=== PATIENT | female | born 1935 | race Caucasian/White ===

== ENCOUNTER 2016-07-05 13:07 | Emergency (ER) | payer MEDICARE ==
[~2016-07-05] VITALS: Ht 152.4 cm; Wt 81.8 kg
[2016-07-05 13:09] VITALS: BP 129/47; PULSE 70; TEMP 98.5
[2016-07-05] MEDS ORDERED: CALCIUM 600/VIT1 CAP PO (13:20)
[2016-07-05] MEDS ORDERED: ZYLOPRIM 300MG300 MG PO (13:20)
[2016-07-05] MEDS ORDERED: COREG 25MG25 MG/TAB PO (13:21)
[2016-07-05] MEDS ORDERED: REFRESH PLUS 00.4 M1 OP (13:21)
[2016-07-05] MEDS ORDERED: NEURONTIN300 MG/CAP PO (13:22)
[2016-07-05] MEDS ORDERED: COZAAR 25MG25 MG/TAB PO (13:22)
[2016-07-05] MEDS ORDERED: MAG-OX 400400 MG/TAB PO (13:23)
[2016-07-05] MEDS ORDERED: LUTEIN20 M1 (13:23)
[2016-07-05] MEDS ORDERED: FISH OIL 1000MG1 CAP PO (13:24)
[2016-07-05] MEDS ORDERED: SYSTANE 0.4%-0.1 SOL OP (13:24)
[2016-07-05] MEDS ORDERED: ZANTAC 150MG T150 MG PO (13:24)
[2016-07-05] MEDS ORDERED: MIRALAX PA17 GM/Dose PO (13:24)
[2016-07-05] MEDS ORDERED: B-121000 MCG PO (13:25)
[2016-07-05] MEDS ORDERED: ALDACTONE 25MG25 M1 PO (13:25)
[2016-07-05] MEDS ORDERED: ZOCOR 40MG40 MG PO (13:25)
[2016-07-05] MEDS ORDERED: COUMADIN 3MG3 MG/TAB PO (13:27)
== END 2016-07-05 15:56 | disposition home or self-care (01) ==
LOC: COL.ER 13:07
DX: M25.562 Pain in left knee (principal); M25.462 Effusion, left knee; N18.9 Chronic kidney disease, unspecified; I50.9 Heart failure, unspecified; Z95.1 Presence of aortocoronary bypass graft; Z95.0 Presence of cardiac pacemaker
CPT/HCPCS: L1830

== ENCOUNTER 2017-01-14 14:36 | Emergency (ER) | payer MEDICARE ==
[~2017-01-14] VITALS: Ht 149.9 cm; Wt 84.1 kg
[~2017-01-14 14:36] MED LIST: ALDACTONE 25MG25 M1 PO; B-121000 MCG PO; CALCIUM 600/VIT1 CAP PO; COREG 25MG25 MG/TAB PO; COUMADIN 3MG3 MG/TAB PO; COZAAR 25MG25 MG/TAB PO; FISH OIL 1000MG1 CAP PO; LUTEIN20 M1; MAG-OX 400400 MG/TAB PO; MIRALAX PA17 GM/Dose PO; NEURONTIN300 MG/CAP PO; REFRESH PLUS 00.4 M1 OP; SYSTANE 0.4%-0.1 SOL OP; ZANTAC 150MG T150 MG PO; ZOCOR 40MG40 MG PO; ZYLOPRIM 300MG300 MG PO
[2017-01-14 14:38] VITALS: TEMP 99.9
[2017-01-14 15:24] LABS: HEMOGLOBIN 12.3 g/dl (12.5-16.0); MEAN CELL VOLUME 102 fl (80.0-100.0); MEAN CORPUSCULAR HEMOGLOBIN 35 pg (27.0-31.0); MEAN CORPUSCULAR HGB CONC 34 g/dl (33.0-37.0); MEAN PLATELET VOLUME 10.2 fl (7.4-10.4); PLATELET COUNT 152 K/mm3 (130-400); RED BLOOD COUNT 3.56 M/mm3 (4.10-5.30)
[2017-01-14 15:33] LABS: ADD PATHOLOGY DIFF REVIEW NO; HEMATOCRIT 36.2 % (37.0-47.0)
[2017-01-14] MEDS ORDERED: REFRESH 1 ML1 ML OP (15:33)
[2017-01-14] MEDS ORDERED: IMDUR 30MG30 MG/TAB PO (15:34)
[2017-01-14 15:36] LABS: ADJUSTED CALCIUM 9.6 mg/dL (8.4-10.2); ALBUMIN 4.7 gm/dL (3.5-5.0); C-REACTIVE PROTEIN 2.1 mg/dL (0.0-0.9); CALCIUM 10.2 mg/dL (8.4-10.2); CREATININE, serum 1.56 mg/dL (0.52-1.25); POTASSIUM 4.6 mmol/L (3.4-5.0); TOTAL PROTEIN 8.2 gm/dL (6.4-8.2)
[2017-01-14 15:38] LABS: INR 4.8 (0.8-3.0)
[2017-01-14 15:46] LABS: PROTHROMBIN TIME 57.1 SECONDS (9.7-12.8)
[2017-01-14 16:29] LABS: BAND 10 % (0-10); EOSINOPHIL 2 % (0-4); LYMPHOCYTE 5 % (20.0-51.0); NEUTROPHILS 82 % (42.0-75.2); PLATELET ESTIMATE NORMAL (NORMAL); TOTAL CELLS COUNTED 100
[2017-01-14 16:30] LABS: TOXIC GRANULATION PRESENT
[2017-01-14 16:31] LABS: ANISOCYTOSIS 1+; OVALOCYTES 1+
[2017-01-14] MEDS ORDERED: ZOFRAN 4MG T4 MG/TAB PO (16:42)
[2017-01-14 16:50] VITALS: BP 122/84; PULSE 84
== END 2017-01-14 17:10 | disposition home or self-care (01) ==
LOC: COL.ER 14:36
PROVIDERS: Emergency Medicine
DX: K52.9 Noninfective gastroenteritis and colitis, unspecified (principal); R79.1 Abnormal coagulation profile; I10 Essential (primary) hypertension; E78.5 Hyperlipidemia, unspecified; Z79.01 Long term (current) use of anticoagulants; Z95.1 Presence of aortocoronary bypass graft; Z90.710 Acquired absence of both cervix and uterus; Z90.49 Acquired absence of other specified parts of digestive tract; Z90.89 Acquired absence of other organs
CPT/HCPCS: J2405; J7030

== ENCOUNTER 2017-03-26 13:34 | Inpatient (IN) | payer MEDICARE ==
[~2017-03-26] VITALS: Ht 149.9 cm; Wt 85.5 kg
[~2017-03-26 13:34] MED LIST changes: +IMDUR 30MG30 MG/TAB PO; +REFRESH 1 ML1 ML OP; +ZOFRAN 4MG T4 MG/TAB PO
[2017-03-26 14:40] LABS: BASO % 0.1 % (0.0-2.0); EOS # 0.1 (0.0-0.7); GRAN # 5.3 (1.4-6.5); GRAN % 76.6 % (42.2-75.2); LYMPH # 0.7 (1.2-3.4); LYMPH % 10.2 % (20.0-51.0); MEAN CELL VOLUME 103 fl (80.0-100.0); MEAN CORPUSCULAR HGB CONC 33 g/dl (33.0-37.0); MEAN PLATELET VOLUME 10.4 fl (7.4-10.4); MONO # 0.7 (0.1-0.6); MONO % 10.5 % (1.7-9.3); PLATELET COUNT 98 K/mm3 (130-400); RED BLOOD COUNT 2.85 M/mm3 (4.10-5.30); REDCELL DISTRIBUTION WIDTH-CV 14.6 % (11.5-14.5)
[2017-03-26 14:40] LABS: INR 3.1 (0.8-3.0); PROTHROMBIN TIME 36.6 SECONDS (9.7-12.8)
[2017-03-26 14:41] LABS: HEMATOCRIT 29.3 % (37.0-47.0); HEMOGLOBIN 9.6 g/dl (12.5-16.0); MEAN CORPUSCULAR HEMOGLOBIN 34 pg (27.0-31.0)
[2017-03-26 14:46] LABS: ALBUMIN 3.8 gm/dL (3.5-5.0); BILIRUBIN,TOTAL 1.1 mg/dL (0.0-1.0); CREATININE, serum 1.51 mg/dL (0.52-1.25); POTASSIUM 4.4 mmol/L (3.4-5.0); TOTAL PROTEIN 6.6 gm/dL (6.4-8.2)
[2017-03-26 14:53] LABS: INFLUENZA A NEGATIVE; INFLUENZA B NEGATIVE
[2017-03-26 14:58] LABS: TROPONIN-I 0.02 ng/mL (0.000-0.034)
[2017-03-26 15:44] LABS: COLLECTION METHOD CLEAN CATCH
[2017-03-26 15:51] LABS: HYALINE CAST >12 /lpf; MUCOUS Present /lpf; PH 6 (5-8); SQUAMOUS EPITHELIAL 0-2 /hpf; URINE APPEARANCE Clear; URINE BACTERIA None Seen /hpf; URINE BILIRUBIN Negative (NEGATIVE); URINE BLOOD Negative (NEGATIVE); URINE COLOR Yellow; URINE GLUCOSE Negative (NEGATIVE); URINE KETONE Negative (NEGATIVE); URINE LEUKOCYTE ESTERASE Negative (NEGATIVE); URINE NITRATE Negative (NEGATIVE); URINE PROTEIN(semi-quant) 1+ (NEGATIVE); URINE RBC 0-2 /hpf; URINE UROBILINOGEN Negative (NEGATIVE)
[2017-03-26 20:10] VITALS: BP 108/52; PULSE 69; TEMP 98.1
[2017-03-27 00:42] VITALS: BP 116/48; PULSE 66; TEMP 98.5
[2017-03-27 03:54] VITALS: BP 118/39; PULSE 71; TEMP 98.3
[2017-03-27] MEDS ORDERED: COUMADIN 3MG3 MG/TAB PO (08:58)
[2017-03-27] MEDS ORDERED: NEURONTIN300 MG/CAP PO (08:59)
[2017-03-27 09:02] VITALS: BP 100/72; PULSE 69; TEMP 97.7
== END 2017-03-27 12:25 | disposition home or self-care (01) | DRG 641 ==
LOC: COL.ER 13:34 → MEDICAL 15:29
PROVIDERS: Emergency Medicine
DX: E86.0 Dehydration (principal); I13.0 Hypertensive heart and chronic kidney disease with heart failure and stage 1 through stage 4 chronic kidney disease, or unspecified chronic kidney disease; R55 Syncope and collapse; I50.9 Heart failure, unspecified; N18.9 Chronic kidney disease, unspecified; I95.1 Orthostatic hypotension; R19.7 Diarrhea, unspecified; I25.2 Old myocardial infarction; J06.9 Acute upper respiratory infection, unspecified; Z79.01 Long term (current) use of anticoagulants; Z95.2 Presence of prosthetic heart valve; Z95.1 Presence of aortocoronary bypass graft; Z87.891 Personal history of nicotine dependence
CPT/HCPCS: 99222-AI; 99239; J7040; J7050

== ENCOUNTER 2017-11-27 15:13 | Observation (INO) | payer MEDICARE ==
[~2017-11-27] VITALS: Ht 149.9 cm; Wt 81.2 kg
[2017-11-27 15:46] LABS: BASO % 0.1 % (0.0-2.0); EOS # 0.3 (0.0-0.7); EOS % 3.2 % (0-4.0); GRAN # 6.1 (1.4-6.5); GRAN % 75.1 % (42.2-75.2); HEMOGLOBIN 10.4 g/dl (12.5-16.0); LYMPH # 0.9 (1.2-3.4); LYMPH % 11.3 % (20.0-51.0); MEAN CELL VOLUME 97 fl (80.0-100.0); MEAN CORPUSCULAR HEMOGLOBIN 33 pg (27.0-31.0); MEAN CORPUSCULAR HGB CONC 34 g/dl (33.0-37.0); MEAN PLATELET VOLUME 9.9 fl (7.4-10.4); MONO # 0.8 (0.1-0.6); MONO % 9.9 % (1.7-9.3); PLATELET COUNT 109 K/mm3 (130-400); RED BLOOD COUNT 3.17 M/mm3 (4.10-5.30); REDCELL DISTRIBUTION WIDTH-CV 14.5 % (11.5-14.5)
[2017-11-27 15:47] LABS: HEMATOCRIT 30.7 % (37.0-47.0)
[2017-11-27 15:49] LABS: INR 3.3 (0.8-3.0); PROTHROMBIN TIME 37.2 SECONDS (9.7-12.8)
[2017-11-27 15:58] LABS: ALANINE AMINOTRANSFERASE 37 U/L (9-52); ALBUMIN 3.7 gm/dL (3.5-5.0); ALKALINE PHOSPHATASE 99 U/L (50-136); ANION GAP 8 mmol/L (7-16); AST,SGOT 38 U/L (15-37); BILIRUBIN,TOTAL 1.1 mg/dL (0.0-1.0); BLOOD UREA NITROGEN 17 mg/dL (7-17); CALCIUM 8.7 mg/dL (8.4-10.2); CARBON DIOXIDE 25 mmol/L (22-30); CHLORIDE 92 mmol/L (98-107); CREATININE, serum 1.33 mg/dL (0.52-1.25); GLUCOSE 96 mg/dL (74-106); SODIUM 125 mmol/L (137-145); TOTAL PROTEIN 6.7 gm/dL (6.4-8.2)
[2017-11-27 16:19] LABS: TROPONIN-I < 0.012 ng/mL (0.000-0.034)
[2017-11-27] MEDS ORDERED: RANEXA 500MG T500 MG PO (16:51)
[2017-11-27] MEDS ORDERED: DEMADEX10 MG PO (16:51)
[2017-11-27] MEDS ORDERED: LIPITOR 40MG TA40 MG PO ×2 (16:53→17:07)
[2017-11-27] MEDS ORDERED: [UNRECOGNIZED DRUG - OTHER] OP (17:08)
[2017-11-27] MEDS ORDERED: CELEXA10 MG PO (17:09)
[2017-11-27] MEDS ORDERED: EPA FISH OIL1 SGL PO (17:09)
[2017-11-27] MEDS ORDERED: CUTIVATE15GMOINT TOP (17:10)
[2017-11-27] MEDS ORDERED: NEURONTIN300 MG/CAP PO (17:11)
[2017-11-27] MEDS ORDERED: MAG-OX 400400 MG/TAB PO (17:11)
[2017-11-27] MEDS ORDERED: PRESERVISION1 SGL PO (17:12)
[2017-11-27] MEDS ORDERED: OCUVITE1 TA1 PO (17:12)
[2017-11-27] MEDS ORDERED: ZANTAC 150MG T150 MG PO (17:13)
[2017-11-27] MEDS ORDERED: SYSTANE BALANCE10 M1 OP (17:13)
[2017-11-27] MEDS ORDERED: B-121000 MCG PO (17:13)
[2017-11-27] MEDS ORDERED: ZOCOR 40MG40 MG PO (17:58)
[2017-11-27] MEDS ORDERED: COUMADIN 3MG3 MG/TAB PO (18:02)
[2017-11-27] MEDS ORDERED: COUMADIN4 MG PO (18:03)
[2017-11-27] MEDS ORDERED: LASIX 20MG TABL20 MG PO (18:04)
[2017-11-27 19:19] VITALS: BP 113/49; PULSE 64; TEMP 98.6
[2017-11-27 23:02] VITALS: BP 139/59; PULSE 63; TEMP 98.2
[2017-11-28 07:53] VITALS: BP 97/52; PULSE 66; TEMP 98.3
[2017-11-28 09:00] VITALS: BP 118/62
[2017-11-28 09:25] LABS: BASO % 0.3 % (0.0-2.0); EOS # 0.3 (0.0-0.7); EOS % 3.9 % (0-4.0); GRAN # 4.6 (1.4-6.5); GRAN % 66.6 % (42.2-75.2); HEMOGLOBIN 10.3 g/dl (12.5-16.0); LYMPH # 1.2 (1.2-3.4); LYMPH % 16.6 % (20.0-51.0); MEAN CELL VOLUME 94 fl (80.0-100.0); MEAN CORPUSCULAR HEMOGLOBIN 33 pg (27.0-31.0); MEAN CORPUSCULAR HGB CONC 35 g/dl (33.0-37.0); MEAN PLATELET VOLUME 10.5 fl (7.4-10.4); MONO # 0.9 (0.1-0.6); MONO % 12.3 % (1.7-9.3); PLATELET COUNT 114 K/mm3 (130-400); RED BLOOD COUNT 3.12 M/mm3 (4.10-5.30); REDCELL DISTRIBUTION WIDTH-CV 14.3 % (11.5-14.5)
[2017-11-28 09:28] LABS: HEMATOCRIT 29.4 % (37.0-47.0)
[2017-11-28 09:39] LABS: ALBUMIN 3.7 gm/dL (3.5-5.0); BILIRUBIN,TOTAL 0.9 mg/dL (0.0-1.0); CREATININE, serum 1.3 mg/dL (0.52-1.25); INR 3.1 (0.8-3.0); POTASSIUM 3.9 mmol/L (3.4-5.0); PROTHROMBIN TIME 35.5 SECONDS (9.7-12.8); TOTAL PROTEIN 6.7 gm/dL (6.4-8.2)
[2017-11-28 12:16] VITALS: BP 105/56; PULSE 70; TEMP 97.9
[2017-11-28 15:15] VITALS: BP 100/46; PULSE 85; TEMP 98.2
[2017-11-28 20:41] VITALS: BP 118/52; PULSE 66; TEMP 98.1
[2017-11-28 23:25] VITALS: BP 115/77; PULSE 70; TEMP 98.3
[2017-11-29 04:08] VITALS: BP 121/52; PULSE 80; TEMP 98
[2017-11-29 07:38] VITALS: BP 100/62; PULSE 79; TEMP 97.7
[2017-11-29 09:43] LABS: BASO % 0.3 % (0.0-2.0); EOS # 0.3 (0.0-0.7); EOS % 3.5 % (0-4.0); GRAN # 4.4 (1.4-6.5); GRAN % 61.3 % (42.2-75.2); HEMATOCRIT 32.6 % (37.0-47.0); HEMOGLOBIN 11.2 g/dl (12.5-16.0); LYMPH # 1.8 (1.2-3.4); LYMPH % 25.4 % (20.0-51.0); MEAN CELL VOLUME 95 fl (80.0-100.0); MEAN CORPUSCULAR HEMOGLOBIN 33 pg (27.0-31.0); MEAN CORPUSCULAR HGB CONC 34 g/dl (33.0-37.0); MONO # 0.7 (0.1-0.6); MONO % 9.2 % (1.7-9.3); PLATELET COUNT 145 K/mm3 (130-400); RED BLOOD COUNT 3.44 M/mm3 (4.10-5.30); REDCELL DISTRIBUTION WIDTH-CV 14.4 % (11.5-14.5)
[2017-11-29 09:55] LABS: ALBUMIN 3.9 gm/dL (3.5-5.0); BILIRUBIN,TOTAL 0.7 mg/dL (0.0-1.0); CALCIUM 9.2 mg/dL (8.4-10.2); CREATININE, serum 1.41 mg/dL (0.52-1.25); INR 1.9 (0.8-3.0); POTASSIUM 3.5 mmol/L (3.4-5.0); PROTHROMBIN TIME 21.7 SECONDS (9.7-12.8); TOTAL PROTEIN 6.9 gm/dL (6.4-8.2)
[2017-11-29] MEDS ORDERED: PHENERGAN W/CO120 M1 PO (10:48)
== END 2017-11-29 12:57 | disposition home or self-care (01) ==
LOC: COL.ER 15:13 → MEDICAL 16:50
PROVIDERS: Emergency Medicine; Student in an Organized Health Care Education/Training Program
DX: R06.02 Shortness of breath (principal); R05 Cough; I13.0 Hypertensive heart and chronic kidney disease with heart failure and stage 1 through stage 4 chronic kidney disease, or unspecified chronic kidney disease; N18.9 Chronic kidney disease, unspecified; I50.9 Heart failure, unspecified; R53.1 Weakness; J06.9 Acute upper respiratory infection, unspecified; E87.1 Hypo-osmolality and hyponatremia; I25.10 Atherosclerotic heart disease of native coronary artery without angina pectoris; E78.5 Hyperlipidemia, unspecified; Z95.1 Presence of aortocoronary bypass graft; Z95.2 Presence of prosthetic heart valve; Z79.01 Long term (current) use of anticoagulants; I25.2 Old myocardial infarction; Z90.49 Acquired absence of other specified parts of digestive tract; Z90.710 Acquired absence of both cervix and uterus; Z87.891 Personal history of nicotine dependence; Z88.3 Allergy status to other anti-infective agents; Z88.2 Allergy status to sulfonamides; Z88.1 Allergy status to other antibiotic agents; Z88.8 Allergy status to other drugs, medicaments and biological substances
CPT/HCPCS: G8978-GP; G8979-GP; J0456; J0696; J1940; J7030; J7050

== ENCOUNTER → 2018-07-22 | Outpatient (CLI) | payer MEDICARE ==
[~2018-07-22] MED LIST changes: +CELEXA10 MG PO; +COUMADIN4 MG PO; +CUTIVATE15GMOINT TOP; +DEMADEX10 MG PO; +EPA FISH OIL1 SGL PO; +LASIX 20MG TABL20 MG PO; +LIPITOR 40MG TA40 MG PO; +OCUVITE1 TA1 PO; +PHENERGAN W/CO120 M1 PO; +PRESERVISION1 SGL PO; +RANEXA 500MG T500 MG PO; +SYSTANE BALANCE10 M1 OP; +[UNRECOGNIZED DRUG - OTHER] OP
== END ==
LOC: COL.RAD 12:30
DX: K57.30 Diverticulosis of large intestine without perforation or abscess without bleeding (principal); M46.95 Unspecified inflammatory spondylopathy, thoracolumbar region; M51.35 Other intervertebral disc degeneration, thoracolumbar region; M48.07 Spinal stenosis, lumbosacral region; I70.0 Atherosclerosis of aorta; Z90.49 Acquired absence of other specified parts of digestive tract; Z95.1 Presence of aortocoronary bypass graft; Z90.710 Acquired absence of both cervix and uterus; Z95.820 Peripheral vascular angioplasty status with implants and grafts

== ENCOUNTER 2022-08-26 09:37 | Day surgery (SDC) | payer MEDICARE ==
[~2022-08-26] VITALS: Ht 144.8 cm; Wt 76.4 kg
[2022-08-26] VITALS (8 sets, daily range): BP systolic 118–189; BP diastolic 52–96; PULSE 64–75; TEMP 97.4–98.8
[~2022-08-26 09:37] MED LIST changes: +CUTIVATE30 GM TOP; +IMDUR 60MG60 MG/TAB PO; +LOVENOX 100100 MG/ML SQ; +NEURONTIN600 MG/TAB PO; +TURMERIC500 MG PO
[2022-08-26] MEDS ORDERED: PROTONIX 40MG T40 MG PO (10:27)
[2022-08-26] MEDS ORDERED: VITAMIND3 5000 PO (10:27)
[2022-08-26] MEDS ORDERED: CALCIUM 600 PLU1 TAB PO (10:29)
[2022-08-26 10:31] LABS: HEMOGLOBIN 11.1 g/dl (12.5-16.0); MEAN CELL VOLUME 100 fl (80.0-100.0); MEAN CORPUSCULAR HEMOGLOBIN 33 pg (27-31); MEAN CORPUSCULAR HGB CONC 33 g/dl (33.0-37.0); MEAN PLATELET VOLUME 10.1 fl (7.4-10.4); PLATELET COUNT 132 K/mm3 (130-400); RED BLOOD COUNT 3.35 M/mm3 (4.10-5.30); REDCELL DISTRIBUTION WIDTH-CV 15.1 % (11.5-14.5)
[2022-08-26 10:35] LABS: HEMATOCRIT 33.5 % (37.0-47.0)
[2022-08-26 10:45] LABS: CALCIUM 10.1 mg/dL (8.4-10.2); CREATININE, serum 1.12 mg/dL (0.57-1.11); POTASSIUM 4.5 mmol/L (3.5-4.5)
[2022-08-26] MEDS ORDERED: LOVENOX 100100 MG/ML SQ (10:52)
[2022-08-26 11:16] LABS: INR 1.1 (0.8-3.0); PROTHROMBIN TIME 12.4 SECONDS (9.7-12.8)
--- NOTE | 2022-08-26 15:00 | NUR ---
PT ADMITTED FROM NURSING TECH POST BATTERY CHANGE ON PACEMAKER. PT IS [id number]. PTS VSS. PT ON RA. PT ORIENTED TO ROOM AND FLOOR. PT GIVEN CALL LIGHT AND INSTRUCTED TO CALL WITH ALL NEEDS.
[2022-08-27 01:30] VITALS: BP_SYST 118
--- NOTE | 2022-08-27 01:58 | NUR ---
PT SHIFT ASSESSMENT COMPLETED AT 2013 SEE DOCUMENTATION. PT RESTING IN LOW BED CALL LIGHT WITHIN REACH, HAVING PAIN AT PROCEDURE SITE WITH DRESSING CDI RATING AT 6 PT RECIEVED TYLENOL AT THIS TIME.
[2022-08-27 04:04] VITALS: BP 122/59; PULSE 72; TEMP 97.5
[2022-08-27 05:12] VITALS: BP_SYST 122
[2022-08-27 07:17] VITALS: BP 107/52; PULSE 68; TEMP 97.7
[2022-08-27 07:24] LABS: BASO % 0.2 % (0.0-2.0); EOS # 0.1 K/mm3 (0.0-0.7); EOS % 1.2 % (0.0-4.0); GRAN # 3.7 K/mm3 (1.4-6.5); GRAN % 64.5 % (42.2-75.2); LYMPH # 1.1 K/mm3 (1.2-3.4); LYMPH % 19.2 % (20.0-51.0); MEAN CELL VOLUME 101 fl (80.0-100.0); MEAN CORPUSCULAR HGB CONC 33 g/dl (33.0-37.0); MONO # 0.8 K/mm3 (0.1-0.6); MONO % 14.6 % (1.7-9.3); PLATELET COUNT 93 K/mm3 (130-400); RED BLOOD COUNT 2.75 M/mm3 (4.10-5.30); REDCELL DISTRIBUTION WIDTH-CV 15.4 % (11.5-14.5)
[2022-08-27 07:28] LABS: HEMATOCRIT 27.8 % (37.0-47.0); HEMOGLOBIN 9.1 g/dl (12.5-16.0); MEAN CORPUSCULAR HEMOGLOBIN 33 pg (27-31)
[2022-08-27 07:35] LABS: CALCIUM 8.5 mg/dL (8.4-10.2); CREATININE, serum 1.05 mg/dL (0.57-1.11); MAGNESIUM 1.5 mg/dL (1.6-2.6); POTASSIUM 4.7 mmol/L (3.5-4.5)
[2022-08-27 08:48] VITALS: BP_SYST 107
--- NOTE | 2022-08-27 09:18 | NUR ---
pt with complaint of nausea this morning. pt did spit up some clear sputum but did no emesis. pt stated she felt she needed to have a BM. was assisted to the bathroom and did have a small BM. pt stated she no longer felt nauseas but just wanted to lay down in the bed.
[2022-08-27] MEDS ORDERED: CLEOCIN HCL300 MG PO (12:25)
--- NOTE | 2022-08-27 13:13 | NUR ---
Initial visit: Tray Line Worker stopped by room on rounds. Pt was resting and content. Pt has no needs right now. Tray Line Worker will follow up as needed.
--- NOTE | 2022-08-27 13:52 | NUR ---
DISCHARGE INSTRUCTIONS REVIEWED WITH PT ALL QUESTIONS AND CONCERNS ANSWERED. IV SITE DISCONTINUED, CATHETER INTACT. PT ESCORTED OUT BY PCT VIA WHEELCHAIR [id number]. ALL PERSONAL BELONGS TAKEN WITH PT.
== END 2022-08-27 13:40 | disposition home or self-care (01) ==
LOC: COL.CAR 09:37 → MEDICAL 15:05 → COL.CAR 08-27 13:40
PROVIDERS: Internal Medicine Cardiovascular Disease
DX: Z45.02 Encounter for adjustment and management of automatic implantable cardiac defibrillator (principal); T82.110A Breakdown (mechanical) of cardiac electrode, initial encounter; I25.5 Ischemic cardiomyopathy; Z95.2 Presence of prosthetic heart valve; Z95.1 Presence of aortocoronary bypass graft; Z88.6 Allergy status to analgesic agent
CPT/HCPCS: OP; C1769; C1882; C1894; J1940; J2250; J3010; J3370; J7050